=== PATIENT | female | born 1965 | race Caucasian/White ===

== ENCOUNTER 2019-08-15 16:26 | Emergency (ER) | payer OTHER ==
[~2019-08-15] VITALS: Ht 162.6 cm; Wt 51.7 kg
[~2019-08-15 16:26] MED LIST: DOXY100C41 PO; SPIR50TA5 PO
[2019-08-15] MEDS ORDERED: IV NS 1000 ML 1,000 ML IV ONE (17:15)
[2019-08-15 17:17] LABS: CREATININE 0.8 mg/dL (0.6-1.3)
[2019-08-15 17:19] LABS: BASOPHILS # (AUTO) 0.1 K/uL (0.0-8.0); EOSINOPHILS # (AUTO) 0.2 K/uL (0.0-0.7); EOSINOPHILS % (AUTO) 2.1 % (0.0-7.0); HEMATOCRIT 38.2 % (31.2-41.9); HEMOGLOBIN 12.2 g/dL (10.9-14.3); LYMPHOCYTES # (AUTO) 2.6 K/uL (20.0-40.0); LYMPHOCYTES % (AUTO) 36.6 % (20.5-51.5); MEAN CORPUSCULAR HEMOGLOBIN 20.3 uug (24.7-32.8); MEAN CORPUSCULAR HGB CONC 32 g/dL (32.3-35.6); MEAN CORPUSCULAR VOLUME 63.6 fL (75.5-95.3); MONOCYTES # (AUTO) 0.7 K/uL (2.0-10.0); MONOCYTES % (AUTO) 9.7 % (0.0-11.0); NEUTROPHILS # (AUTO) 3.6 K/uL (1.8-8.9); NEUTROPHILS % (AUTO) 50.6 % (38.5-71.5); PLATELET COUNT (AUTO) 262 K/uL (179-408); RED BLOOD CELL COUNT(AUTO) 6.01 MIL/uL (3.63-4.92)
[2019-08-15 17:24] LABS: BILIRUBIN,DIRECT 0.1 mg/dL (0.0-0.2); BILIRUBIN,TOTAL 0.5 mg/dL (0.2-1.0); TOTAL PROTEIN, SERUM 7.5 g/dL (6.4-8.2)
[2019-08-15] MEDS ORDERED: IOHEXOL 300MG/ML 100 ML INFUS..BTL ONE (17:31)
[2019-08-15] MEDS ORDERED: SWABABLE VALVE TRANSFER SET EA MC ONE (17:31)
[2019-08-15] MEDS ORDERED: IV NORMAL SALINE 250 ML IV ONE (17:31)
[2019-08-15 18:18] LABS: *BILIRUBIN,URIN NEGATIVE (NEGATIVE); *BLOOD, URINE NEGATIVE (NEGATIVE); *COLOR,URINE YELLOW (YELLOW); *KETONES,URINE NEGATIVE (NEGATIVE); *URINE HCG, QUAL NEGATIVE (NEGATIVE); *UROBILINOGEN,URINE 0.2 E.U./dl (NORMAL); LEUKOCYTE ESTERASE ,URINE 1+ (NEGATIVE); NITRITE, URINE NEGATIVE (NEGATIVE); UGLUCOSE NEGATIVE (NEGATIVE)
[2019-08-15 18:25] LABS: *CLARITY,URINE SLIGHTLY HAZY (CLEAR); MUCUS,URINE FEW /LPF (0-FEW); SQUAMOUS EPITHELIAL CELL,UR MODERATE /HPF (NONE SEEN)
[2019-08-15] MEDS ORDERED: CEFTRIAXONE 500 MG VIAL IM ONE (19:00)
[2019-08-15] MEDS ORDERED: AZITHROMYCIN 250 MG TABLET PO ONE (19:00)
[2019-08-15] MEDS ORDERED: CEFTRIAXONE 500 MG VIAL ONE (19:07)
[2019-08-15 19:14] VITALS: BP 126/70
[2019-08-18 14:06] LABS: *TRIC.VAG. NAA Negative (Negative)
[2019-08-19 00:06] LABS: *GC NAA Negative (Negative)
== END 2019-08-15 19:16 | disposition home or self-care (01) ==
LOC: ER 16:31
DX: D52.9 Folate deficiency anemia, unspecified (principal); N70.11 Chronic salpingitis; N28.89 Other specified disorders of kidney and ureter; Z79.2 Long term (current) use of antibiotics; Z79.899 Other long term (current) drug therapy
CPT/HCPCS: 36415; 74177; 80048; 80076; 81000; 81001; 83690; 84702; 84703; 85025; 87086; 87491; 96372; 99284; J0696; Q9967; A4663; J7030; J7050

== ENCOUNTER 2022-04-04 06:03 | Emergency (ER) | payer OTHER ==
[~2022-04-04] VITALS: Ht 162.6 cm; Wt 50.3 kg
[~2022-04-04 06:03] MED LIST changes: +DOXY-326 PO; -DOXY100C41 PO
[2022-04-04] MEDS ORDERED: DEXAMETHASONE SOD PHOSPHATE 4 MG INJ IM ONE (07:15)
[2022-04-04] MEDS ORDERED: DEXAMETHASONE SOD PHOSPHATE 10 MG INJ ONE (07:16)
[2022-04-04] MEDS ORDERED: IBUP-1955 PO (07:18)
--- NOTE | 2022-04-04 07:24 | NUR ---
DR PATEL AT BEDSIDE FOR EVALUATION. PT MEDICATED PER MD ORDERS.
== END 2022-04-04 07:29 | disposition home or self-care (01) ==
LOC: ER 06:12
DX: U07.1 COVID-19 (principal); J02.8 Acute pharyngitis due to other specified organisms; K58.9 Irritable bowel syndrome, unspecified
CPT/HCPCS: 96372; 99283; J1100; A4663